=== PATIENT | male | born 1965 | race Caucasian/White ===

== ENCOUNTER → 2021-12-31 | Day surgery (SDC) | payer OTHER ==
[~2021-12-31] VITALS: Ht 175.3 cm; Wt 129.3 kg
[~2021-12-31] MED LIST: CELEBREX **OUT100 MG PO; FENOFIBRATE160 MG PO; LAMICTAL100 MG PO; MOBIC7.5 MG PO; PREDNISONE5 MG PO; PRILOSEC20 MG PO; PRINIVIL20 MG PO; PROBIOTIC1 EAC1 PO; VITAMIN B-121000 MC1 PO; VITAMIN D2000 UNI1 PO
[2021-12-31 09:45] LABS: MCH 29.9 pg (25.0-31.0); MCHC 34.9 g/dL (32.0-36.0); MCV 85.8 fL (78.0-100.0); MPV 9.6 fL (6.0-9.5); RBC 5.01 M/uL (4.70-6.00); WBC 6.1 K/uL (4.0-10.5)
[2021-12-31 09:58] LABS: ALBUMIN 4.1 g/dL (3.4-5.0); BILIRUBIN - TOTAL 0.8 mg/dL (0.2-1.0); BUN/CREAT RATIO (CALC) 16.7 RATIO; CREATININE 1.08 mg/dL (0.67-1.17); GLOBULIN (CALCULATION) 3.4 g/dL; POTASSIUM 3.5 mmol/L (3.5-5.1); TOTAL PROTEIN 7.5 g/dL (6.4-8.2)
== END | disposition home or self-care (01) ==
LOC: FAS 08:50
PROVIDERS: Surgery
DX: K22.70 Barrett's esophagus without dysplasia (principal); K58.0 Irritable bowel syndrome with diarrhea; E78.5 Hyperlipidemia, unspecified; I10 Essential (primary) hypertension; F31.9 Bipolar disorder, unspecified; G47.30 Sleep apnea, unspecified; K21.9 Gastro-esophageal reflux disease without esophagitis; Z96.651 Presence of right artificial knee joint; Z87.891 Personal history of nicotine dependence
CPT/HCPCS: 36415; 80053; J2704; J7120